=== PATIENT | female | born 1965 | race Caucasian/White ===

== ENCOUNTER 2018-02-24 17:41 | Emergency (ER) | payer BC ==
[2018-02-24 17:48] VITALS: BP 126/84
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
--- NOTE | 2018-02-24 18:29 | RAD ---
INDICATION: Left great toe pain after slip and fall COMPARISON: None. TECHNIQUE: 3 views of the left foot were obtained. FINDINGS: The adequately corticated bones are properly aligned. Joint spaces appear maintained. No fracture, dislocation or focal bony abnormality is seen. IMPRESSION: NO RADIOGRAPHICALLY APPARENT FRACTURE OR DISLOCATION. If the patient's symptoms persist, follow-up imaging is recommended.
== END 2018-02-24 18:44 | disposition home or self-care (01) ==
LOC: UCEAST 17:41
DX: S90.32XA Contusion of left foot, initial encounter (principal); W18.49XA Other slipping, tripping and stumbling without falling, initial encounter; Y93.01 Activity, walking, marching and hiking; Y92.481 Parking lot as the place of occurrence of the external cause; Z88.2 Allergy status to sulfonamides; Z91.040 Latex allergy status
CPT/HCPCS: 99212; G0463

== ENCOUNTER 2019-02-27 14:09 | Emergency (ER) | payer BC, OTHER ==
[2019-02-27 14:23] VITALS: BP 122/72
[2019-02-27] MEDS ORDERED: Tetan/Diph/Pertus SYR(Tdap)* 0.5 ML SYR(BOOSTRIX) use SYR IM ONE (14:51)
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
[2019-02-27 22:03] LABS: HIV 4th Generation Nonreactive (Nonreactive)
[2019-02-27 23:03] LABS: Hepatitis B Surface Antigen Negative (Negative)
[2019-02-27 23:21] LABS: Hepatitis C Antibody Negative (Negative)
[2019-02-28 12:28] LABS: Hepatitis B Surface Ab Indeterminate (Immune)
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
== END 2019-02-27 15:35 | disposition home or self-care (01) ==
LOC: UCEAST 14:09
DX: S51.852A Open bite of left forearm, initial encounter (principal); W50.3XXA Accidental bite by another person, initial encounter; Y93.89 Activity, other specified; Y92.9 Unspecified place or not applicable; Y99.0 Civilian activity done for income or pay; Z88.2 Allergy status to sulfonamides; Z91.040 Latex allergy status
CPT/HCPCS: 36415; 80074; 86706; 87389; 99211; G0463